=== PATIENT | male | born 1945 | race Caucasian/White ===

== ENCOUNTER 2016-12-21 08:02 | Inpatient (IN) | payer MEDICARE ==
[~2016-12-21 08:02] MED LIST: BP MED; CHLORTHALIDONE25 M1 PO; CLINDAMYCIN HC300 M2 PO; CLOBETASOL PROP15 G2 TP; D3-20002000 UNIT PO; ETODOLAC400 MG/TAB PO; GABAPENTIN100 M1 PO; OCUVITE SOFTGE1 EACH PO; SIMVASTATIN10 M1 PO
[2016-12-21 18:52] LABS: BASO % 0.1 % (0-2); EOS % 0.1 % (0-7); HCT-HEMATOCRIT 38.7 % (36.0-53.5); HGB-HEMOGLOBIN 13.1 gm/dl (13.5-17.0); IMMATURE GRANULOCYTES ABSOLUTE 0.01 tho/cmm (0-0.03); IMMATURE GRANULOCYTES PERCENT 0.1 % (0-0.3); LYMPH ABSOLUTE COUNT 0.3 tho/cmm (0.8-4.5); MCH (MEAN CORPUSCULAR HGB) 31.6 pg (28.0-32.0); MCHC MEAN CORPUSCULAR HGB CONC 33.9 % (32.0-36.0); MCV (MEAN CELL VOLUME) 93.5 fl (82.0-96.0); MEAN PLATELET VOLUME 8.3 cmc (9.4-12.4); MONO % 2.3 % (0-12); MONOCYTE ABSOLUTE COUNT 0.2 tho/cmm (0.0-1.2); NEUTROPHIL ABSOLUTE COUNT 7.7 tho/cmm (1.6-8.0); NEUTROPHIL-AUTOMATED 7.7 tho/cmm (1.6-8.0); NEUTROPHILS % 93.4 % (40-80); PLATELET COUNT 124 tho/cmm (150-450); RED BLOOD COUNT 4.14 mil/cmm (4.40-5.70); RED CELL DISTRIBUTION WIDTH 12.2 % (12.4-16.4); WHITE BLOOD COUNT 8.2 tho/cmm (4.0-10.0)
[2016-12-21 19:05] LABS: ANION GAP 11 mmol/L (0-20); BLOOD UREA NITROGEN 11 mg/dl (6-24); CARBON DIOXIDE-VENOUS 25 mmol/L (22-32); CHLORIDE 108 mmol/l (96-110); CREATININE 0.96 mg/dl (0.60-1.30); GLUCOSE 129 mg/dL (70-110); MAGNESIUM 1.8 mg/dl (1.3-2.6); POTASSIUM 3.7 mmol/L (3.7-5.1); SODIUM 140 mmol/L (135-145); eGFR VALUE FOR BLACK >90 mL/Min
[2016-12-22 04:16] LABS: HCT-HEMATOCRIT 37.8 % (36.0-53.5); HGB-HEMOGLOBIN 12.7 gm/dl (13.5-17.0); IMMATURE GRANULOCYTES ABSOLUTE 0.02 tho/cmm (0-0.03); IMMATURE GRANULOCYTES PERCENT 0.2 % (0-0.3); LYMPH % 3.3 % (20-45); LYMPH ABSOLUTE COUNT 0.3 tho/cmm (0.8-4.5); MCH (MEAN CORPUSCULAR HGB) 31.4 pg (28.0-32.0); MCHC MEAN CORPUSCULAR HGB CONC 33.6 % (32.0-36.0); MCV (MEAN CELL VOLUME) 93.6 fl (82.0-96.0); MEAN PLATELET VOLUME 8.9 cmc (9.4-12.4); MONO % 5.2 % (0-12); MONOCYTE ABSOLUTE COUNT 0.5 tho/cmm (0.0-1.2); NEUTROPHIL ABSOLUTE COUNT 8.8 tho/cmm (1.6-8.0); NEUTROPHIL-AUTOMATED 8.8 tho/cmm (1.6-8.0); NEUTROPHILS % 91.3 % (40-80); PLATELET COUNT 134 tho/cmm (150-450); RED BLOOD COUNT 4.04 mil/cmm (4.40-5.70); RED CELL DISTRIBUTION WIDTH 12.2 % (12.4-16.4); WHITE BLOOD COUNT 9.6 tho/cmm (4.0-10.0)
[2016-12-22 05:33] LABS: ANION GAP 16 mmol/L (0-20); BLOOD UREA NITROGEN 11 mg/dl (6-24); CARBON DIOXIDE-VENOUS 22 mmol/L (22-32); CHLORIDE 105 mmol/l (96-110); CREATININE 1.11 mg/dl (0.60-1.30); GLUCOSE 164 mg/dL (70-110); MAGNESIUM 1.8 mg/dl (1.3-2.6); SODIUM 139 mmol/L (135-145); eGFR VALUE FOR BLACK 78 mL/Min
[2016-12-24 04:27] LABS: PLATELET COUNT 148 tho/cmm (150-450)
[2016-12-24] MEDS ORDERED: PROVENTIL HFA6.7 G1 INH ×2 (14:26→15:12)
[2016-12-24] MEDS ORDERED: ULTRAM50 M1 PO ×2 (14:28→15:13)
[2016-12-24] MEDS ORDERED: METOPROLOL TART25 M1 PO (14:28)
[2016-12-24] MEDS ORDERED: NEURONTIN300 M1 PO (14:30)
[2016-12-24] MEDS ORDERED: MUCINEX600 M1 PO (14:30)
== END 2016-12-24 16:38 | DRG 165 ==
LOC: SHSB 08:02 → ORW 14:25 → PACU 18:27 → CCU 19:40
PROVIDERS: ADMIT Surgery
PROC: 0BTC0ZZ Resection of Right Upper Lung Lobe, Open Approach (ICD-10-PCS; principal; 2016-12-21)
PROC: 07B70ZX Excision of Thorax Lymphatic, Open Approach, Diagnostic (ICD-10-PCS; 2016-12-21)
DX: C34.90 Malignant neoplasm of unspecified part of unspecified bronchus or lung (principal); J44.9 Chronic obstructive pulmonary disease, unspecified; E78.5 Hyperlipidemia, unspecified; I10 Essential (primary) hypertension; M41.9 Scoliosis, unspecified; Z87.891 Personal history of nicotine dependence; Z85.810 Personal history of malignant neoplasm of tongue
CPT/HCPCS: C1751; J1170; J1650; J1940; J2250; J3010; J3370; J3480; J7040; J7050